=== PATIENT | male | born 1980 | race Caucasian/White ===

== ENCOUNTER 2016-04-01 01:48 | Emergency (ER) | payer OTHER ==
[~2016-04-01] VITALS: Ht 185.4 cm; Wt 81.7 kg
[~2016-04-01 01:48] MED LIST: COLACE100 MG PO; NOHOMEMEDICATIONS; NORCO 5-325 TA1 EACH PO
[2016-04-01 02:08] LABS: ABSOLUTE NEUTROPHILS 4.7 thou/uL (1.4-8.2); BASOPHILS 0.8 % (0.0-2.0); EOSINOPHILS 0.3 % (0.0-3.0); HEMATOCRIT 45.6 % (42.0-52.0); HEMOGLOBIN 15.1 gm/dL (14.0-18.0); LYMPHOCYTES 43.1 % (24.0-44.0); MCHC 33.1 % (28.0-37.0); MCV 90.5 fL (80.0-100.0); MONOCYTES 8.6 % (1.0-8.0); PLATELET COUNT 408 thou/uL (150-400); POLYS 47.2 % (36.0-66.0); RBC 5.03 mil/uL (4.50-6.00); RDW 13.2 % (10.5-14.5); WBC 9.8 thou/uL (4.0-11.0)
[2016-04-01 02:15] LABS: CALCIUM 9.6 mg/dL (8.5-10.1); CREATININE 1.3 mg/dL (0.6-1.3); POTASSIUM 3.5 mmol/L (3.5-5.1)
[2016-04-01 02:16] LABS: MANUAL DIFF NO
[2016-04-01 02:22] LABS: APTT 21.9 Seconds (24.5-32.8); PROTIME 10.5 Seconds (9.3-11.4)
[2016-04-01 02:48] VITALS: BP 130/72
== END 2016-04-01 03:00 | disposition short-term general hospital (02) ==
LOC: ER 01:48
PROVIDERS: Emergency Medicine
DX: S62.512B Displaced fracture of proximal phalanx of left thumb, initial encounter for open fracture (principal); S41.001A Unspecified open wound of right shoulder, initial encounter; F10.99 Alcohol use, unspecified with unspecified alcohol-induced disorder; W34.00XA Accidental discharge from unspecified firearms or gun, initial encounter; Y93.89 Activity, other specified; Y92.89 Other specified places as the place of occurrence of the external cause; Y99.8 Other external cause status

== ENCOUNTER 2018-01-03 05:01 | Emergency (ER) | payer OTHER ==
[~2018-01-03] VITALS: Ht 185.4 cm; Wt 114.3 kg
--- NOTE | ~2018-01-03 | EKG ---
[place] [address] 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
[2018-01-03 05:30] LABS: ABSOLUTE NEUTROPHILS 5.4 thou/uL (1.4-8.2); BASOPHILS 0.5 % (0.0-2.0); EOSINOPHILS 0.7 % (0.0-3.0); HEMATOCRIT 44.7 % (42.0-52.0); LYMPHOCYTES 18.4 % (24.0-44.0); MCHC 33.6 g/dL (28.0-37.0); MCV 86.3 fL (80.0-100.0); MONOCYTES 9.1 % (1.0-8.0); PLATELET COUNT 288 thou/uL (150-400); POLYS 71.3 % (36.0-66.0); RBC 5.18 mil/uL (4.50-6.00); RDW 13.3 % (10.5-14.5); WBC 7.6 thou/uL (4.0-11.0)
[2018-01-03 05:39] LABS: CALCIUM 9.6 mg/dL (8.5-10.1); POTASSIUM 3.9 mmol/L (3.5-5.1)
[2018-01-03 05:45] LABS: ALBUMIN 3.9 g/dL (3.4-5.0); TOTAL BILIRUBIN 0.5 mg/dL (<0.1-1.0); TOTAL PROTEIN 8.1 g/dL (6.4-8.2)
[2018-01-03] MEDS ORDERED: TESSALON PERLE100 MG PO (05:58)
[2018-01-03 06:41] VITALS: BP 129/63
== END 2018-01-03 06:42 | disposition home or self-care (01) ==
LOC: ER 05:01
PROVIDERS: Emergency Medicine
DX: J06.9 Acute upper respiratory infection, unspecified (principal); R50.9 Fever, unspecified; B34.9 Viral infection, unspecified; R42 Dizziness and giddiness

== ENCOUNTER 2019-03-21 21:19 | Emergency (ER) | payer OTHER ==
[~2019-03-21] VITALS: Ht 182.9 cm; Wt 108.9 kg
[~2019-03-21 21:19] MED LIST changes: +TESSALON PERLE100 MG PO
[2019-03-21 22:08] LABS: ABSOLUTE NEUTROPHILS 5.8 thou/uL (1.4-8.2); BASOPHILS 0.3 % (0.0-2.0); EOSINOPHILS 0.1 % (0.0-3.0); HEMATOCRIT 44.4 % (42.0-52.0); HEMOGLOBIN 14.8 gm/dL (14.0-18.0); LYMPHOCYTES 5.7 % (24.0-44.0); MCH 29.1 pg (26.0-34.0); MCHC 33.4 g/dL (28.0-37.0); MCV 87.2 fL (80.0-100.0); MONOCYTES 8.6 % (1.0-8.0); PLATELET COUNT 235 thou/uL (150-400); POLYS 85.3 % (36.0-66.0); RBC 5.09 mil/uL (4.50-6.00); RDW 13.6 % (10.5-14.5); WBC 6.8 thou/uL (4.0-11.0)
[2019-03-21 22:15] LABS: CALCIUM 9.1 mg/dL (8.5-10.1); CREATININE 1.2 mg/dL (0.7-1.3); POTASSIUM 3.7 mmol/L (3.5-5.1)
[2019-03-21 22:19] LABS: ALBUMIN 3.9 g/dL (3.4-5.0); TOTAL BILIRUBIN 0.4 mg/dL (<0.1-1.0); TOTAL PROTEIN 7.9 g/dL (6.4-8.2)
[2019-03-21] MEDS ORDERED: TAMIFLU75 MG PO (22:29)
[2019-03-21] MEDS ORDERED: AMOXICILLIN500 M1 PO (22:47)
[2019-03-21 23:11] VITALS: BP 133/73
== END 2019-03-21 23:11 | disposition home or self-care (01) ==
LOC: ER 21:19
PROVIDERS: Nurse Practitioner
DX: J11.1 Influenza due to unidentified influenza virus with other respiratory manifestations (principal); R11.2 Nausea with vomiting, unspecified; F17.210 Nicotine dependence, cigarettes, uncomplicated